=== PATIENT | female | born 1980 | race Caucasian/White ===

== ENCOUNTER → 2016-09-26 | Outpatient (CLI) | payer OTHER ==
[~2016-09-26] MED LIST: CHOL200024 PO; FERR1TAB2 PO; MULT-257 PO
== END | disposition home or self-care (01) ==
LOC: STAR 13:35
PROVIDERS: ATTEND Specialist
DX: N94.5 Secondary dysmenorrhea (principal); N94.12 Deep dyspareunia; N92.0 Excessive and frequent menstruation with regular cycle
CPT/HCPCS: 36415; 84703; 85025

== ENCOUNTER 2016-10-02 10:54 | Day surgery (SDC) | payer OTHER ==
[~2016-10-02] VITALS: Ht 157.5 cm; Wt 74.0 kg
[~2016-10-02 10:54] MED LIST changes: +BUPIVACAINE/PF 0.25% ONE; +FENTANYL PF 250 MCG/5ML ONE; +MIDAZOLAM 1 MG/ML, 2ML ONE
[2016-10-02] MEDS ORDERED: LACTATED RINGERS 1,000 ML IV SCH (11:18)
[2016-10-02] MEDS ORDERED: PHENAZOPYRIDINE 200 MG TABLET PO STA (11:24)
[2016-10-02 11:42] VITALS: BP 125/86
[2016-10-02 12:12] LABS: HCG UR OBC PASS
[2016-10-02] MEDS ORDERED: METOCLOPRAMIDE 5 MG/ML, 2ML IV PRN (12:30)
[2016-10-02] MEDS ORDERED: OXYcodone 5 MG/5 ML ORAL.SOL UDC PO PRN (12:30)
[2016-10-02] MEDS ORDERED: ONDANSETRON 2MG/ML, 2ML IVPush PRN (12:30)
[2016-10-02] MEDS ORDERED: ACETAMINOPHEN 325 MG TABLET PO PRN (12:30)
[2016-10-02] MEDS ORDERED: MEPERIDINE/PF 25MG/0.5ML IVPush PRN (12:30)
[2016-10-02] MEDS ORDERED: HYDROmorphone 1 MG/ML, 1ML IV PRN (12:30)
[2016-10-02] MEDS ORDERED: PROMETHAZINE 25 MG/ML, 1ML IV PRN (12:30)
[2016-10-02] MEDS ORDERED: FENTANYL PF 100 MCG/2ML ONE (14:05)
[2016-10-02] MEDS ORDERED: OXYcodone 5 MG/5 ML ORAL.SOL UDC ONE (14:06)
[2016-10-02] MEDS: FENTANYL PF 100 MCG/2ML IV PRN ×3 (14:25→14:54)
[2016-10-02] MEDS ORDERED: DEXAMETHASONE 4 MG/ML, 1ML ONE (15:42)
[2016-10-02] MEDS ORDERED: PROPOFOL 10 MG/ML, 20ML ONE (15:42)
[2016-10-02] MEDS ORDERED: ONDANSETRON 2MG/ML, 2ML ONE (15:42)
[2016-10-02] MEDS ORDERED: ROCURONIUM 10 MG/ML ONE (15:42)
[2016-10-02] MEDS ORDERED: CEFOTETAN 2 GM ONE (15:42)
[2016-10-02] MEDS ORDERED: NEOSTIGMINE 1 MG/ML, 10ML ONE (15:42)
[2016-10-02] MEDS ORDERED: GLYCOPYRROLATE 0.2MG/1ML ONE (15:42)
[2016-10-02] MEDS ORDERED: KETOROLAC 30 MG/1 ML ONE (15:42)
== END 2016-10-02 17:05 ==
LOC: OUT 10:54
PROVIDERS: ATTEND Specialist
DX: D25.0 Submucous leiomyoma of uterus (principal); N94.6 Dysmenorrhea, unspecified; N94.10 Unspecified dyspareunia; D64.9 Anemia, unspecified; Z98.890 Other specified postprocedural states; Z87.891 Personal history of nicotine dependence; Z72.89 Other problems related to lifestyle
CPT/HCPCS: 52000; 58571; 81025; 88307; J1100; J1885; J2250; J2405; J2704; J2710; J3010; J3490; J7120; S2900; S0074